=== PATIENT | female | born 1970 | race African-American/Black ===

== ENCOUNTER 2017-12-08 15:05 | Observation (INO) ==
[2017-12-08 15:34] LABS: Basophils # 0.1 10*3/uL (0.0-0.2); Basophils % 0.5 % (0.0-0.8); Eosinophils % 0.3 % (0.00-10.9); Hematocrit 41.1 VOL% (42.0-52.0); Hemoglobin 13.2 GM/DL (14.0-18.0); Immature Granulocytes % 0.2 %; Immature Granulocytes Absolute 0.02 #; Lymphocytes # 2.2 10*3/uL (1.4-4.0); Lymphocytes % 22.9 % (21.2-54.2); Mean Corpuscular HGB Conc 32.1 GM/DL (32-36); Mean Corpuscular Hemoglobin 27 PG (27-34); Mean Corpuscular Volume 84.9 FL (87-102); Monocytes % 10.2 % (1.7-12.7); Neutrophils # 6.3 10*3/uL (1.4-7.4); Neutrophils % 65.9 % (38.7-73.9); Platelet Count 331 T/CUMM (130-400); Red Blood Count 4.84 MC/CUMM (3.8-5.5); Red Cell Distribution Width 13.1 % (9.3-17.3); White Blood Count 9.5 T/CUMM (4-12)
[2017-12-08 16:02] LABS: Calcium 8.6 MG/DL (8.5-10.1); Osmolality,Calculated 275.5 MOS/KG (273-304); Potassium 3.9 MMOL/L (3.5-5.1)
[2017-12-08] MEDS ORDERED: NITROGLYCERIN 2% OINT 1 INCH/GM PACK TOP STA (16:07)
[2017-12-08] MEDS ORDERED: ONDANSETRON 4 MG/2 ML VIAL IV STA (16:07)
[2017-12-08] MEDS ORDERED: MORPHINE 4 MG/1 ML VIAL IV STA (16:07)
[2017-12-08] MEDS ORDERED: ASPIRIN 325 MG TABLET PO STA (16:07)
[2017-12-08] MEDS ORDERED: ALUM/MAG/SIMETH/LIDO VISC 1:1 30 ML BOTTLE PO STA (16:07)
[2017-12-08 18:41] LABS: Apearance,Urine CLEAR (Clear); Bilirubin,Urine Negative (Negative); Blood, Urine Negative (Negative); Glucose,Urine (UA) Negative (Negative); Ketones,Urine Negative (Negative); Nitrite,Urine Negative (Negative); Protein,Urine Negative; RBC,Urine 1 /HPF (0-4); Squamous Epithelial Cell,Urine Occasional /HPF (0-10); Urine Color Straw (Yellow); Urine Specific Gravity 1.008 (1.001-1.035); Urine Urobilinogen < 2.0 EU/DL (0.2-1.0)
[2017-12-08 18:58] LABS: Barbiturates Screen,Urine Negative (Negative); Benzodiazepines Screen,Urine Negative (Negative); Cannabinoid Screen,Urine Negative (Negative); Opiate Screen,Urine Positive (Negative); Phencyclidine Screen,Urine Negative (Negative)
[2017-12-08] MEDS ORDERED: ALBUTEROL 0.63 MG/3 ML NEB RESP TX PRN (19:42)
[2017-12-08] MEDS ORDERED: ALUM/MAG/SIMETH/LIDO VISC 1:1 30 ML BOTTLE PO ONE (19:42)
[2017-12-08] MEDS ORDERED: ENOXAPARIN 40 MG/0.4 ML SYRINGE SUBCUT SCH (21:00)
[2017-12-08] MEDS ORDERED: SIMVASTATIN 10 MG TABLET PO SCH (21:00)
[2017-12-08] MEDS: LOSARTAN 50 MG TABLET PO SCH (22:06)
[2017-12-08] MEDS: ACETAMINOPHEN 325 MG TABLET PO PRN (22:06)
[2017-12-09 04:09] LABS: Risk Ratio 3.11; Thyroid Stimulating Hormone 0.644 uIU/ml (0.358-3.74); VLDL CHOLESTEROL 26.2 MG/DL
[2017-12-09] MEDS ORDERED: FUROSEMIDE 40 MG TABLET PO PRN (08:16)
[2017-12-09] MEDS ORDERED: POTASSIUM CHLORIDE 20 MEQ TABLET PO PRN (08:16)
[2017-12-09] MEDS ORDERED: ASPIRIN CHEW 81 MG TABLET PO SCH (09:00)
[2017-12-09] MEDS ORDERED: LINACLOTIDE 145 MCG CAPSULE PO SCH (09:00)
[2017-12-09] MEDS ORDERED: busPIRone 10 MG TABLET PO SCH (09:00)
[2017-12-09] MEDS ORDERED: PANTOPRAZOLE 40 MG TABLET PO SCH ×2 (09:00)
[2017-12-09] MEDS: ACETAMINOPHEN 325 MG TABLET PO PRN (09:15)
[2017-12-09] MEDS: CITALOPRAM 20 MG TABLET PO SCH ×2 (09:29→09:37)
[2017-12-09] MEDS: LOSARTAN 50 MG TABLET PO SCH (09:29)
[2017-12-09] MEDS ORDERED: ALBUTEROL 2.5 MG/3 ML NEB RESP TX PRN (13:00)
[2017-12-09 15:46] VITALS: BP 117/74
== END 2017-12-09 18:34 | disposition home or self-care (01) ==
LOC: N.ED 15:05 → N.EDINP 15:05 → SUATTDRO 16:31 → N.2E 19:03
PROVIDERS: ADMIT Internal Medicine; ATTEND Hospitalist